=== PATIENT | female | born 1950 | race African-American/Black ===

== ENCOUNTER 2020-03-01 09:15 | Emergency (ER) | payer MEDICARE, SELFPAY ==
[2020-03-01 09:16] VITALS: BP 155/101; PULSE 89; RESP 18; TEMP 36.6; O2SAT 98; BMI 29.2
--- NOTE | 2020-03-01 09:26 | EKG12_ITS ---
Test Reason : UPPER EXTREMITY PAIN Blood Pressure : / mmHG Vent. Rate : 078 BPM Atrial Rate : 078 BPM P-R Int : 138 ms QRS Dur : 114 ms QT Int : 414 ms P-R-T Axes : 064 064 024 degrees QTc Int : 471 ms Normal sinus rhythm Incomplete right bundle branch block Borderline ECG Confirmed by BLANCA HOOD, ANNIE ([id number]), digital editor VICKI STEEN ([id number]) on 03/08/2020 9:11:45 AM Referred By: PUSHPA Confirmed By:SOWMYA RIOS MD
--- NOTE | 2020-03-01 09:27 | RAD_ITS ---
STUDY: X-RAY - RIGHT SHOULDER REASON FOR EXAM: Female, 70 years old. rt arm and shoulder pain for 3 days. unknown injury TECHNIQUE: 4 view(s) of the shoulder. COMPARISON: None. FINDINGS: There is mild degenerative arthrosis of the glenohumeral articulation. There is degenerative arthrosis of the acromioclavicular joint without inferior osseous spur formation. Normal acromion. Normal humeral head and visualized proximal humerus. The soft tissue structures are unremarkable. Ill-defined subpleural groundglass opacities are seen more prominent in the lung bases , may represent atypical pneumonia or viral pneumonia (COVID-19 ?). . RAD/Shoulder min 2 Views IMPRESSION: Moderate degenerative arthrosis of the shoulder. Electronically Signed: Carlos Montoya, at 10:11 EST Tel , Service support ,
--- NOTE | 2020-03-01 09:28 | ED.VIS.GEN ---
History of Present Illness Chief Complaint: Upper Extremity Injury Informant: Patient Onset: Days Context: Gradual Onset Current Severity: Moderate Maximum Severity: Moderate Narrative: Patient presents with right upper arm and shoulder pain for the past 3 days. Pain is been gradual in onset. She denies any known injury. She is right-hand dominant. She denies weakness or paresthesias. She is been taking Tylenol and ibuprofen without significant improvement. Past Medical History - Allergies and Home Meds Allergies/Adverse Reactions: Allergies aspirin Allergy (Verified 03/01/20 09:18) Angioedema Primary Care Physician: Deya Miramontes [facility] GRINDER, [facility] [Primary Care Provider] - Past Medical History: None Review of Systems General: Denies: Chills, Fever Eyes: Denies: Visual changes - bilaterally ENT: Denies: Bilateral ear pain Cardiovascular: Denies: Chest pain Respiratory: Denies: Dyspnea, Cough Gastrointestinal: Denies: Abdominal pain, Nausea, Vomiting, Diarrhea Musculoskeletal: Reports: Arthralgias. Denies: Back pain, Swelling Skin: Denies: Rash, Wounds Neurological: Denies: Headache Hematologic: Denies: Easy bruising, Easy bleeding Allergy: Denies: Uticaria Physical Exam Vital Signs/Narrative: Vital Signs Temp Pulse Resp BP Pulse Ox 03/01/20 09:16 97.9 F 89 18 155/101 H 98 Inital Vital Signs reviewed: Yes General: Well nourished, Well developed Head: Normocephalic ENT: Moist mucous membranes Neck: Supple Cardiovascular: Regular rate, Regular rhythm Respiratory: No distress, CTA bilaterally Abdomen: Soft, Nontender Extremities: - - Mild muscular tenderness over the posterior shoulder and upper thoracic paraspinal muscles. Full range of motion of right upper extremity. Strong distal pulses. Neurological: Alert, Oriented x3, Normal Strength, Normal Sensation Psychological: Normal affect Diagnostic/Tx/Re-eval Chest X-Ray - ED: 1 View, Read by ED Physician, Chronic Changes Impressions Shoulder X-Ray 03/01/20 09:27 IMPRESSION: Moderate degenerative arthrosis of the shoulder. Electronically Signed: Carlos Montoya, at 10:11 EST Tel , Service support , Chest X-Ray 03/01/20 09:55 IMPRESSION: Ill-defined subpleural groundglass opacities are seen more prominent in the lung bases , may represent atypical pneumonia or viral pneumonia (COVID-19 ?). Electronically Signed: Carlos Montoya, at 10:11 EST Tel , Service support , 03/01/20 09:27 Shoulder min 2 Views [RAD] Stat 03/01/20 09:55 Chest 1 View (Portable) [RAD] Stat 03/01/20 10:30 Mucosa - Nose SARS-CoV-2 Antigen (Rapid) - Final Laboratory Results 03/01/20 03/01/20 03/01/20 09:45 09:45 10:10 WBC 4.3 L RBC 4.35 Hgb 13.7 Hct 41.7 MCV 95.9 MCH 31.5 MCHC 32.9 RDW Std Deviation 48.8 H RDW Coeff of Lola 14.2 Plt Count 294 MPV 9.2 Immature Gran % (Auto) 0.200 Neut % (Auto) 53.0 Lymph % (Auto) 32.3 [place] % (Auto) 8.3 Eos % (Auto) 5.3 H Baso % (Auto) 0.9 Absolute Neuts (auto) 2.3 Absolute Lymphs (auto) 1.40 Nucleated RBC % 0 Sodium Cancelled 139 Potassium Cancelled 4.3 Chloride Cancelled 108 H Carbon Dioxide Cancelled 27.0 Anion Gap Cancelled 4 L BUN Cancelled 16 Creatinine Cancelled 0.70 Estim Creat Clear Calc Cancelled 38.37 Est GFR (MDRD) Af Amer Cancelled 105 Est GFR (MDRD) Non-Af Cancelled 87 BUN/Creatinine Ratio Cancelled 22.8 H Glucose Cancelled 92 Calcium Cancelled 9.3 Troponin I Cancelled < 0.015 - EKG Initial EKG Interpretation: Sinus Rhythm - Sinus at 78 with incomplete right bundle branch block. No acute ischemia. - Medical Decision Making Patient was given morphine and Zofran for pain. Chest x-ray per my review reveals chronic changes. Radiologist interpretation is reviewed and they do raise concern for possible subtle changes of Covid infection. In light of this rapid Covid test is obtained and negative. Right shoulder x-ray per my interpretation reveals no fracture or dislocation. No bony lesions. Radiologist interpretation is also reviewed. Blood work is unremarkable including a negative troponin. Patient's pain is reproducible. 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 She will be given Lidoderm patch with a few Wetmore for breakthrough pain. She will continue Tylenol ibuprofen at home. ED Disposition - Plan for ED Patient: Disposition: Home or Assisted Living Diagnosis: Right shoulder strain Instructions: ED Shoulder Pain, Uncertain Cause Prescriptions: Lidocaine [Lidoderm Patch] 1 patch TOPICAL DAILY #3 patch Transmission Status: Pending to [id number] Hydrocodone Bitart/Apap 5-325 [Wet[place] 5MG-325MG] 1 tablet PO Q6H PRN PRN 3 Days #10 tablet PRN Reason: Pain Transmission Status: Received by [id number] Referrals: Deya Miramontes NP, [facility] [Primary Care Provider] - 3-5 Days if not improving
--- NOTE | 2020-03-01 09:32 | NURSING ---
NO OLD EKGS
[2020-03-01] MEDS: Ondansetron 4 MG/2 ML Vial IV (09:46)
[2020-03-01] MEDS: Morphine 4 MG/ML Syringe IV (09:47)
--- NOTE | 2020-03-01 09:55 | RAD_ITS ---
STUDY: X-RAY CHEST REASON FOR EXAM: Female, 70 years old. RIGHT ARM AND SHOULDER PAIN X 3 DAYS. NKI TECHNIQUE: Single AP portable view of the chest. COMPARISON: None. FINDINGS: Ill-defined subpleural groundglass opacities are seen more prominent in the lung bases , may represent atypical pneumonia or viral pneumonia (COVID-19 ?). There is no demonstrated pleural abnormality. Normal size heart. Normal mediastinum and jasson. Normal visualized pulmonary arteries. Normal visualized aortic arch and descending thoracic aorta. Normal visualized thoracic spine. Normal visualized ribs, clavicles, and shoulders. There is no demonstrated abnormality of the visualized soft tissue structures of the upper abdomen. RAD/Chest 1 View (Portable) IMPRESSION: Ill-defined subpleural groundglass opacities are seen more prominent in the lung bases , may represent atypical pneumonia or viral pneumonia (COVID-19 ?). Electronically Signed: Carlos Montoya, at 10:11 EST Tel , Service support ,
--- NOTE | 2020-03-01 10:04 | NURSING ---
GREEN TOP NEEDS REDRAWN
[2020-03-01 10:06] LABS: Absolute Neutrophil Count 2.3 X10^3/uL (2.0-7.7); Basophil# 0.04 X10^3/uL; Basophil% 0.9 % (0-1); Eosinophil# 0.23 X10^3/uL; Eosinophils% 5.3 % (0-5); Hematocrit 41.7 % (37-47); Hemoglobin 13.7 g/dL (12.0-15.0); Lymphocyte % 32.3 % (19-41); Mean Corp Hgb Conc 32.9 g/dL (32-36); Mean Corpuscular Hgb 31.5 pg (27.0-32.0); Mean Corpuscular Volume 95.9 fL (81-99); Mean Platelet Vol. 9.2 fl (6.2-12.0); Monocyte# 0.36 X10^3/uL; Monocyte% 8.3 % (0-10); NRBC Flagged by Analyzer 0 % (0-5); Neutrophil # 2.29 X10^3/uL (2.7-7.7); Platelet Count 294 K/mm3 (150-450); RBC Distribution Width CV 14.2 % (11.6-14.6); RBC Distribution Width SD 48.8 fl (35.1-43.9); Red Blood Count 4.35 M/mm3 (4.2-5.4); White Blood Count 4.3 K/mm3 (4.4-11.0)
[2020-03-01 10:32] LABS: Anion Gap 4 (5-15); BUN 16 mg/dL (7-18); BUN/Creat Ratio 22.8 RATIO (10-20); Calcium,Total 9.3 mg/dL (8.5-10.1); Chloride 108 mmol/L (98-107); EST Glomerular Filtration Rate 87 mL/min (>60); Est Glom Filt Rate - Afr Amer 105 mL/min (>60); Estimated Creatinine Clearance 38.37 ml/min; Glucose 92 mg/dL (74-106); Potassium 4.3 mmol/L (3.5-5.1); Sodium Level 139 mmol/L (136-145)
[2020-03-01] MEDS: Lidocaine 5% Patch 1 PATCH TOPICAL (11:51)
[2020-03-01 11:58] VITALS: BP 147/104; PULSE 65; RESP 16; O2SAT 95
== END 2020-03-01 12:03 | disposition home or self-care (01) ==
PROVIDERS: Emergency Provider Emergency Medicine; PCP Nurse Practitioner Family
DX: S46.911A Strain of unspecified muscle, fascia and tendon at shoulder and upper arm level, right arm, initial encounter (principal); X58.XXXA Exposure to other specified factors, initial encounter
CPT/HCPCS: 71045; 73030; 80048; 84484; 85025; 87426; 93005; 96374; 96375; 99284; J2405